=== PATIENT | male | born 1970 | race Two or more races ===

== ENCOUNTER 2022-10-03 18:44 | Emergency (ER) | payer MEDICAID ==
[~2022-10-03] VITALS: Ht 165.1 cm; Wt 90.7 kg
[2022-10-03] MEDS ORDERED: IV NORMAL SALINE 1000 ML BAG IV ONE ×2 (19:00→20:00)
[2022-10-03 19:25] LABS: BASOPHILS # (AUTO) 0.1 K/UL (0.0-0.2); EOSINOPHILS # (AUTO) 0.1 K/uL (0.0-0.7); EOSINOPHILS % (AUTO) 1.7 % (0.0-7.0); HEMATOCRIT 33.2 % (36.7-47.1); HEMOGLOBIN 11.3 g/dL (12.5-16.3); LYMPHOCYTES # (AUTO) 1.8 K/uL (0.8-4.8); LYMPHOCYTES % (AUTO) 20.4 % (20.5-51.5); MEAN CORPUSCULAR HEMOGLOBIN 27.6 uug (23.8-33.4); MEAN CORPUSCULAR HGB CONC 34 g/dL (32.5-36.3); MEAN CORPUSCULAR VOLUME 80.6 fL (73.0-96.2); MONOCYTES # (AUTO) 0.6 K/uL (0.1-1.30); MONOCYTES % (AUTO) 7.3 % (0.0-11.0); NEUTROPHILS % (AUTO) 69.6 % (38.5-71.5); PLATELET COUNT (AUTO) 252 K/uL (152-348); RED BLOOD CELL COUNT(AUTO) 4.11 MIL/uL (4.06-5.63); RED CELL DISTRIBUTION WIDTH 13.5 % (12.1-16.2); WHITE BLOOD COUNT (AUTO) 8.6 K/uL (3.6-10.2)
[2022-10-03 19:30] LABS: DIFFERENTIAL COMMENT 1
[2022-10-03 19:39] LABS: AMMONIA 11 umol/L (11-32)
[2022-10-03 19:41] LABS: ETHANOL < 3 MG/DL (0-10)
[2022-10-03 19:47] LABS: ACETONE, SERUM NEGATIVE (NEGATIVE)
[2022-10-03 19:50] LABS: ALANINE AMINOTRANSFERASE 16 U/L (16-63); ALBUMIN 1.9 g/dL (3.4-5.0); ALKALINE PHOSPHATASE 132 U/L (50-136); ASPARTATE AMINOTRANSFERASE 11 U/L (15-37); BILIRUBIN,DIRECT < 0.1 mg/dL (0.0-0.2); BILIRUBIN,TOTAL 0.2 mg/dL (0.2-1.0); CALCIUM 7.3 mg/dL (8.5-10.1); CARBON DIOXIDE 23 mmol/L (21-32); CHLORIDE 100 mmol/L (98-107); CREATININE 1.8 mg/dL (0.6-1.3); POTASSIUM 3.7 mmol/L (3.5-5.1); SODIUM SERUM 131 mmol/L (136-145); TOTAL PROTEIN, SERUM 6.1 g/dL (6.4-8.2); UREA NITROGEN, BLOOD 20 mg/dL (7-18)
[2022-10-03 19:53] LABS: GLUCOSE 555 mg/dL (74-106)
[2022-10-03 19:55] LABS: ACETAMINOPHEN < 2.0 ug/mL (10-30); THYROID STIMULATING HORMONE 3.793 mIU/mL (0.358-3.740)
[2022-10-03] MEDS ORDERED: INSULIN REGULAR, HUMAN 300 UNIT/3 ML VIAL SQ ONE (20:00)
[2022-10-03] MEDS ORDERED: POTASSIUM CHLORIDE 100 ML ONE (20:09)
[2022-10-03] MEDS ORDERED: INSULIN REGULAR, HUMAN 300 UNIT/3 ML VIAL ONE (20:09)
[2022-10-03] MEDS: POTASSIUM CHLORIDE 50 ML IV SCH ×3 (20:29→22:08)
[2022-10-03] MEDS ORDERED: LORAZEPAM 2 MG/1 ML VIAL IV ONE (21:45)
[2022-10-03] MEDS ORDERED: ASPIRIN 81 MG TAB.CHEW PO ONE (21:45)
[2022-10-03 21:50] LABS: *AMPHETAMINE, URINE NEGATIVE (NEGATIVE); *BARBITURATE, URINE NEGATIVE (NEGATIVE); *BENZODIAZEPINE, URINE NEGATIVE (NEGATIVE); *CANNABINOID, URINE NEGATIVE (NEGATIVE); *COCCAINE, URINE NEGATIVE (NEGATIVE); *OPIATE, URINE NEGATIVE (NEGATIVE); *PHENCYCLIDINE SCREEN,URINE NEGATIVE (NEGATIVE); FENTANYL, URINE NEGATIVE (NEGATIVE)
[2022-10-03] MEDS ORDERED: ASPIRIN 81 MG TAB.CHEW ONE (22:01)
[2022-10-03] MEDS ORDERED: LORAZEPAM 2 MG/1 ML VIAL ONE (22:02)
[2022-10-03 23:42] VITALS: O2SAT 97
== END 2022-10-04 00:51 | disposition short-term general hospital (02) ==
LOC: ER 18:47
DX: R41.82 Altered mental status, unspecified (principal); N28.9 Disorder of kidney and ureter, unspecified; E11.65 Type 2 diabetes mellitus with hyperglycemia; R07.89 Other chest pain; Z20.822 Contact with and (suspected) exposure to COVID-19
CPT/HCPCS: 80076; 80048; 82009; 82140; 82962 ×2; 84443; 85025; 85730; 87426; 87040 ×2; 84484; 36415; 93005; 71045; 70450; 99291; 96361; 96374; 96372; 83605; 80299; 80320; 80307; J2060; J3480; J1815; J7040 ×2; A4663; G0480